=== PATIENT | female | born 1970 | race Caucasian/White ===

== ENCOUNTER 2024-07-25 15:45 | Emergency (ER) | payer OTHER, SELFPAY ==
[2024-07-25 15:50] VITALS: BP 148/84
--- NOTE | 2024-07-25 19:52 | ED.GENMED ---
History of Present Illness
General
Chief Complaint: Musculo-Skeletal Complaint
Source: patient and spouse
Exam Limitations: none
Time Seen by Provider: 07/25/24 19:18
Nursing documentation reviewed up to this point in time: agreed with
History of Present Illness
History of Present Illness:
Patient is a 54-year-old healthy female presenting to the emergency department for evaluation of left ankle injury occurring earlier this afternoon. Patient states that she stepped off a curb inverting her left ankle. She did not hit her head or
lose consciousness. Patient has been unable to bear any weight since injury. She denies any numbness/tingling in left foot. Patient denies any other injury sustained in fall. No other complaints today.
Past History
Past History
ED Past Medical History: None
ED Past Surgical History: None
Social History
Tobacco: Non-smoker
Review of Systems
Review of Systems
Allergies reviewed?: Yes
All Other Systems: ROS reviewed and negative except as documented in HPI and ROS
Phy Exam
Physical Exam
Physical Exam:
Vitals: Hypertensive, otherwise vital signs stable. Afebrile
General: Patient is well appearing, no acute distress
Skin: Warm and dry, no rashes or lesions
Head: Normocephalic, atraumatic
Throat: Protecting airway
Neck: Normal ROM, no cervical spine tenderness
Cardiac: Regular rate
Pulm: No apparent respiratory distress
Abdomen: Nondistended
Extremities: Significant edema of left ankle with tenderness just superior to left lateral malleolus. No bony tenderness of left medial malleolus, midfoot, hindfoot, or calcaneus. No pain at base of left fifth metatarsal or head of left fibula.
Achilles intact. Patient has limited ability to dorsiflex/plantarflex left ankle due to pain. No bony tenderness of left knee with normal range of motion. Palpable DP pulse of LLE with normal capillary refill. Sensation intact.
Neuro: Grossly intact
Psychiatric: Normal affect.
Course
Orders/Labs/Results
Orders:
Orders
07/25/24 15:53
Ankle, left 3 view CR [CR Ankle - Left Min 3 Views ] Urgent
Comment:
Reason For Exam: injury
07/25/24 19:41
Crutches-Treatment ONCE
Splints/Slings/Crut- Treatment ONCE
Location: Left
Type of Splint: Short Leg
Comment: w/ stirrup
Ibuprofen [Motrin] 600 mg PO NOW STA
Vital Signs
Initial and Last Documented VS:
Initial Vital Signs
Temp Pulse Resp BP Pulse Ox
97.9 F 90 16 148/84 97
07/25/24 15:50 07/25/24 15:50 07/25/24 15:50 07/25/24 15:50 07/25/24 15:50
Last Documented Vital Signs
Temp Pulse Resp BP Pulse Ox
97.9 F 90 16 148/84 97
07/25/24 15:50 07/25/24 15:50 07/25/24 15:50 07/25/24 15:50 07/25/24 15:50
Procedures
Splinting/Sling Placement
Left Lower Leg:
Procedure completed by: Heidi Bobby RN
Pre-splint extermity exam: neurovascular intact
Type of splint: posterior short leg (With stirrup)
Splint material: fiberglass
Splint checked by provider?: Yes
Normal distal neurovascular exam?: Yes
MDM/Problems Addressed
Differential Diagnosis Includes:
Not limited to: Ankle fracture, ankle sprain, Achilles tendon rupture, foot fracture, etc.
MDM/Problems Addressed:
54 year old female with left ankle injury sustained earlier today when she tripped off of a curb. No head strike or other associated injuries. She has been unable to weight bear given pain. Vitals and exam as above. LLE neurovascularly intact with
diffuse edema of left ankle and tenderness just proximal to left lateral malleolus. Ankle xray obtained in triage and reviewed by me which shows a distal fibula fracture. It appears to be [place] type C, although potentially type B. Discussed with
patient. Given location - will place patient in posterior short leg splint w/ stirrup and give crutches. Patient tolerated splinting well. Discussed remaining non-weight bearing until cleared by orthopedics. Advised ice, elevation, tylenol/motrin
for pain. Contact info given for ortho - she will contact Saturday morning. Return precautions discussed.
Chronic conditions affecting care:
N/A
Acute Exacerbation and/or Progression of Chronic Illness:
N/A
*Radiology
Radiology exam reviewed: preliminary read by ED provider (Ankle x-ray reviewed by me-distal fibular fracture)
*Pulse Oximetry
Patient hypoxic: no
*EKG
Interpreted by ED Provider?: NA
*Cardiology Technologist Interpretation
Rate: Cardiology Technologist- N/A
*Critical Care Note
Total Time (30-74mins, 75-104mins- exclusive of procedures): Not Applicable
Patient Management
Escalation/DeEscalation of care consider admission/obs:
Admit not indicated
ED Attending Note
-
Portions of this chart may have been created with voice recognition software.� Occasional wrong word or��sound alike� substitutions may have occurred due to the inherent limitations of voice recognition software.
Discharge Plan
Departure
Patient Disposition: Home (Routine Discharge)
Date of Disposition: 07/25/24
Time of Disposition: 19:48
Patient with high blood pressure during this ER visit?: Yes
Condition: Good
Discharge Problem:
Fracture of distal end of left fibula
Instructions: Ankle Fracture (DC), Splint Care
Prescriptions:
No Action
omeprazole 40 MG capsule,delayed release(DR/EC)
40 mg PO DAILY Qty: 30 0RF
Referrals:
Jason Medellin DPM [Active] - Follow up in 2-3 days
Giles Coker MD [Active] - Follow up in 2-3 days
Activity Restrictions/Additional Instructions:
Return to the emergency department with any numbness/tingling in the left leg, intractable pain, significant swelling, worsening in current times, or any other concerns
- As discussed�your x-ray showed a fracture of the distal end of your left fibula. You were placed in a splint in the emergency department and given crutches. You must keep the splint in place and remain nonweightbearing until you are seen by
orthopedics.
- You should continue to ice and elevate your left ankle over the next 2 days. Take Tylenol and/or Motrin for pain.
- Follow-up with orthopedics for further evaluation/management. You should contact them Saturday morning for an appointment.
Monitor your symptoms closely and return to the emergency department with any acute worsening/new symptoms or any other concerns
Interventions
Interventions:
*Risk Screen - Suicide Last Done: 07/25/24 15:52
*Neglect/Abuse Screening Last Done: 07/25/24 15:52
*Nursing Disposition Last Done: 07/25/24 21:26
ED-Musculoskeletal Assessment Last Done: 07/25/24 21:22
Discharge Date and Time
Discharge Date/Time: 07/25/24 21:27
Print Language: SLOVAK
[2024-07-25] MEDS: MOTRIN 600 MG PO (20:18)
== END 2024-07-25 21:27 | disposition home or self-care (01) ==
LOC: EMR 15:45
PROVIDERS: EMERGENCY PHYSICIAN Emergency Medicine; FAMILY PHYSICIAN Family Medicine
DX: S82.832A Other fracture of upper and lower end of left fibula, initial encounter for closed fracture (principal); X50.1XXA Overexertion from prolonged static or awkward postures, initial encounter
CPT/HCPCS: 99283; 29515; 73610

== ENCOUNTER 2024-08-03 06:38 | Day surgery (SDC) | payer BC, SELFPAY ==
[2024-08-03] VITALS (9 sets, daily range): BP systolic 129–161; BP diastolic 54–81; BMI 46.8
[2024-08-03] MEDS: CELEBREX 200 MG PO (07:31)
[2024-08-03] MEDS: TYLENOL 1000 MG PO (07:31)
[2024-08-03] MEDS: NORMOSOL-R/PLASMALYTE-A 1000 IV (07:40)
[2024-08-03] MEDS: DILAUDID 0.5 MG IV ×3 (10:24→10:46)
[2024-08-03 10:25] LABS: Glucose - Point of Care 148 mg/dl (70-99)
[2024-08-03] MEDS: ZOFRAN 4 MG IV (11:47)
== END 2024-08-03 13:00 | disposition home or self-care (01) ==
LOC: SDS 06:38
PROVIDERS: ATTENDING PHYSICIAN Student in an Organized Health Care Education/Training Program
DX: S82.842A Displaced bimalleolar fracture of left lower leg, initial encounter for closed fracture (principal); S93.432A Sprain of tibiofibular ligament of left ankle, initial encounter; X58.XXXA Exposure to other specified factors, initial encounter
CPT/HCPCS: 27814; 27829; 73610; 76000; 82962; 93005; C1713